=== PATIENT | female | born 1940 | race Caucasian/White ===

== ENCOUNTER 2016-10-09 22:29 | Inpatient (IN) | payer OTHER, BC ==
[~2016-10-09] VITALS: Ht 152.4 cm; Wt 59.0 kg
[2016-10-09 23:37] LABS: UA SPECIFIC GRAVITY <=1.005 (1.005-1.035); microscopic required? YES; urine erythrocyte 3+ (NEGATIVE)
[2016-10-09 23:47] LABS: PLATELET COUNT 180 x10^3mcL (130-400)
[2016-10-09 23:49] LABS: BASOPHIL % 0 % (0-2); RED CELL DISTRIBUTION WIDTH 18.2 % (11.5-14.5)
[2016-10-09 23:54] LABS: CALCIUM 8.4 mg/dL (8.5-10.1); CARBON DIOXIDE 21.2 mmol/L (21-32); CHLORIDE SERUM 102 mmol/L (98-107); CREATININE SERUM 1.7 mg/dL (0.6-1.0); GLUCOSE SERUM 155 mg/dL (74-106); POTASSIUM SERUM 3.3 mmol/L (3.5-5.1); SODIUM SERUM 135 mmol/L (136-145)
[2016-10-10 00:04] LABS: ALKALINE PHOSPHATASE 138 U/L (46-116); ALT/SGPT 20 U/L (14-59); AST/SGOT 29 U/L (15-37); BILIRUBIN TOTAL 1.3 mg/dL (0.20-1.00); TOTAL PROTEIN, SERUM 7.7 g/dL (6.4-8.2)
[2016-10-10 00:06] LABS: CK-MB < 0.5 ng/mL (0-3.6); CREATINE KINASE 23 U/L (26-192)
[2016-10-10 00:09] LABS: ALBUMIN 2.4 g/dL (3.4-5.0)
[2016-10-10] MEDS ORDERED: SYNTHROID0.112 MG PO (01:48)
[2016-10-10] MEDS ORDERED: CARVEDILOL6.25 M1 PO (01:48)
[2016-10-10] MEDS ORDERED: D-20001 TAB PO (01:49)
[2016-10-10] MEDS ORDERED: ASPIR LOW81 MG PO (01:49)
[2016-10-10] MEDS ORDERED: MASON NATURAL100 MG PO (01:49)
[2016-10-10] MEDS ORDERED: NITROFURANTOIN100 MG PO (01:50)
[2016-10-10 02:08] LABS: UA SPECIFIC GRAVITY <=1.005 (1.005-1.035); microscopic required? YES; urine erythrocyte NEGATIVE (NEGATIVE)
[2016-10-10 02:43] LABS: CHOLESTEROL/HDL RATIO 3.8
[2016-10-10 02:44] VITALS: BP 91/43
[2016-10-10 02:45] LABS: FREE T4 1.14 ng/dL (0.76-1.46); FREE THYROXINE INDEX 2.9 ug/dL (1.4-4.5)
[2016-10-10 04:45] LABS: T3 TOTAL 0.56 ng/mL
[2016-10-10 06:09] LABS: BASOPHIL % 0.2 % (0-2); PLATELET COUNT 160 x10^3mcL (130-400)
[2016-10-10 06:35] VITALS: BP 85/40
[2016-10-10 06:37] LABS: RED CELL DISTRIBUTION WIDTH 17.8 % (11.5-14.5)
[2016-10-10 06:57] LABS: CALCIUM 7.8 mg/dL (8.5-10.1); CARBON DIOXIDE 18.3 mmol/L (21-32); CHLORIDE SERUM 104 mmol/L (98-107); CREATININE SERUM 1.8 mg/dL (0.6-1.0); GLUCOSE SERUM 266 mg/dL (74-106); MAGNESIUM 1.7 mg/dL (1.8-2.4); PHOSPHOROUS 3.2 mg/dL (2.5-4.9); POTASSIUM SERUM 4.3 mmol/L (3.5-5.1); SODIUM SERUM 136 mmol/L (136-145)
[2016-10-10 10:05] VITALS: BP 106/40
[2016-10-10 13:28] VITALS: BP 105/55
[2016-10-10 17:02] VITALS: BP 90/40
[2016-10-10 20:47] VITALS: BP 93/49
[2016-10-11] VITALS (9 sets, daily range): BP systolic 94–117; BP diastolic 43–59
[2016-10-11 06:11] LABS: BASOPHIL % 0.3 % (0-2); PLATELET COUNT 163 x10^3mcL (130-400)
[2016-10-11 06:42] LABS: CALCIUM 7.6 mg/dL (8.5-10.1); CARBON DIOXIDE 18.9 mmol/L (21-32); CHLORIDE SERUM 108 mmol/L (98-107); CREATININE SERUM 1.5 mg/dL (0.6-1.0); GLUCOSE SERUM 139 mg/dL (74-106); MAGNESIUM 1.7 mg/dL (1.8-2.4); PHOSPHOROUS 2.3 mg/dL (2.5-4.9); POTASSIUM SERUM 4.5 mmol/L (3.5-5.1); SODIUM SERUM 138 mmol/L (136-145)
[2016-10-11] MEDS ORDERED: LIPI10 PO (10:14)
[2016-10-11] MEDS ORDERED: FLO4 PO (10:14)
[2016-10-12 01:02] VITALS: BP 108/58
[2016-10-12 05:49] VITALS: BP 105/52
[2016-10-12 06:33] LABS: PLATELET COUNT 161 x10^3mcL (130-400)
[2016-10-12 06:41] LABS: CALCIUM 7.6 mg/dL (8.5-10.1); CARBON DIOXIDE 19.8 mmol/L (21-32); CHLORIDE SERUM 108 mmol/L (98-107); CREATININE SERUM 1.5 mg/dL (0.6-1.0); GLUCOSE SERUM 158 mg/dL (74-106); MAGNESIUM 1.8 mg/dL (1.8-2.4); PHOSPHOROUS 2.9 mg/dL (2.5-4.9); POTASSIUM SERUM 4.5 mmol/L (3.5-5.1); SODIUM SERUM 138 mmol/L (136-145)
[2016-10-12 08:04] LABS: BASOPHIL % 0 % (0-2); RED CELL DISTRIBUTION WIDTH 17.9 % (11.5-14.5)
[2016-10-12 08:05] LABS: rbc morphology (normal/abnorm) NORMAL (NORMAL)
[2016-10-12 10:30] VITALS: BP 105/48
[2016-10-12 13:29] VITALS: BP 100/52
[2016-10-12 17:41] VITALS: BP 104/51
[2016-10-12 20:40] VITALS: BP 99/51
[2016-10-13 06:01] VITALS: BP 125/54
[2016-10-13 07:14] LABS: BASOPHIL % 0.2 % (0-2); PLATELET COUNT 159 x10^3mcL (130-400)
[2016-10-13 07:37] LABS: CALCIUM 8.2 mg/dL (8.5-10.1); CHLORIDE SERUM 110 mmol/L (98-107); CREATININE SERUM 1.4 mg/dL (0.6-1.0); GLUCOSE SERUM 141 mg/dL (74-106); MAGNESIUM 1.9 mg/dL (1.8-2.4); PHOSPHOROUS 2.4 mg/dL (2.5-4.9); SODIUM SERUM 138 mmol/L (136-145)
[2016-10-13 08:32] LABS: RED CELL DISTRIBUTION WIDTH 18.1 % (11.5-14.5)
[2016-10-13 09:20] VITALS: BP 130/60
[2016-10-13 17:24] VITALS: BP 109/37
[2016-10-13 21:21] VITALS: BP 114/52
[2016-10-14 06:15] VITALS: BP 93/44
[2016-10-14 06:40] LABS: BASOPHIL % 0.2 % (0-2); PLATELET COUNT 157 x10^3mcL (130-400)
[2016-10-14 06:45] LABS: RED CELL DISTRIBUTION WIDTH 18.1 % (11.5-14.5)
[2016-10-14 06:55] LABS: CALCIUM 7.9 mg/dL (8.5-10.1); CARBON DIOXIDE 18.9 mmol/L (21-32); CHLORIDE SERUM 109 mmol/L (98-107); CREATININE SERUM 1.5 mg/dL (0.6-1.0); GLUCOSE SERUM 123 mg/dL (74-106); POTASSIUM SERUM 4.3 mmol/L (3.5-5.1); SODIUM SERUM 138 mmol/L (136-145)
[2016-10-14 09:14] LABS: rbc morphology (normal/abnorm) ABNORMAL (NORMAL)
[2016-10-14 10:04] VITALS: BP 110/65
[2016-10-14] MEDS ORDERED: LEVAQUIN750 MG PO (15:54)
[2016-10-14] MEDS ORDERED: FER300 PO (16:07)
[2016-10-14 16:49] VITALS: BP 110/65
== END 2016-10-14 18:12 | disposition home or self-care (01) | DRG 689 ==
LOC: ED 22:29 → MU 10-10 01:43 → DU 10-10 01:43 → MU 10-11 15:40
PROVIDERS: Emergency Medicine; Family Medicine; ADMIT Family Medicine
DX: N39.0 Urinary tract infection, site not specified (principal); N17.0 Acute kidney failure with tubular necrosis; E43 Unspecified severe protein-calorie malnutrition; I50.43 Acute on chronic combined systolic (congestive) and diastolic (congestive) heart failure; E87.1 Hypo-osmolality and hyponatremia; R18.8 Other ascites; D68.69 Other thrombophilia; I11.0 Hypertensive heart disease with heart failure; E11.65 Type 2 diabetes mellitus with hyperglycemia; E11.51 Type 2 diabetes mellitus with diabetic peripheral angiopathy without gangrene; E87.6 Hypokalemia; K75.81 Nonalcoholic steatohepatitis (NASH); N13.39 Other hydronephrosis; N20.0 Calculus of kidney; D64.9 Anemia, unspecified; E80.6 Other disorders of bilirubin metabolism; K42.9 Umbilical hernia without obstruction or gangrene; E03.9 Hypothyroidism, unspecified; Z79.4 Long term (current) use of insulin; Z68.25 Body mass index [BMI] 25.0-25.9, adult; Z95.1 Presence of aortocoronary bypass graft; I25.10 Atherosclerotic heart disease of native coronary artery without angina pectoris; B96.89 Other specified bacterial agents as the cause of diseases classified elsewhere
CPT/HCPCS: 82962; 83880; 84439; J1815; J1956; J3475; J7030; Q0092

== ENCOUNTER 2017-05-24 02:52 | Inpatient (IN) | payer OTHER, BC ==
[~2017-05-24] VITALS: Ht 152.4 cm; Wt 56.8 kg
[~2017-05-24 02:52] MED LIST: ASPIR LOW81 MG PO; CARVEDILOL6.25 M1 PO; D-20001 TAB PO; FER300 PO; FLO4 PO; LEVAQUIN750 MG PO; LIPI10 PO; MASON NATURAL100 MG PO; NITROFURANTOIN100 MG PO; SYNTHROID0.112 MG PO
[2017-05-24 04:45] LABS: BASOPHIL % 0.1 % (0-2)
[2017-05-24 04:48] LABS: PLATELET COUNT 93 x10^3mcL (130-400)
[2017-05-24 04:55] LABS: ALKALINE PHOSPHATASE 72 U/L (46-116); ALT/SGPT 16 U/L (14-59); AST/SGOT 13 U/L (15-37); CALCIUM 8.6 mg/dL (8.5-10.1); CARBON DIOXIDE 12.5 mmol/L (21-32); CHLORIDE SERUM 102 mmol/L (98-107); GLUCOSE SERUM 129 mg/dL (74-106); LIPASE 760 IU/L (73-393); POTASSIUM SERUM 3.8 mmol/L (3.5-5.1); SODIUM SERUM 130 mmol/L (136-145); TOTAL PROTEIN, SERUM 7.3 g/dL (6.4-8.2)
[2017-05-24 04:58] LABS: ALBUMIN 2.9 g/dL (3.4-5.0); CREATININE SERUM 5.1 mg/dL (0.6-1.0)
[2017-05-24] MEDS ORDERED: SYNTHROID0.112 MG PO (05:24)
[2017-05-24] MEDS ORDERED: SPIRONOLACTONE50 MG PO (05:24)
[2017-05-24] MEDS ORDERED: FUROSEMIDE20 MG PO (05:25)
[2017-05-24] MEDS ORDERED: CEPHALEXIN500 MG PO (05:25)
[2017-05-24] MEDS ORDERED: CARVEDILOL6.25 M1 PO (05:26)
[2017-05-24] MEDS ORDERED: FUROSEMIDE40 MG PO (05:26)
[2017-05-24] MEDS ORDERED: ASPIR LOW81 MG PO (05:27)
[2017-05-24] MEDS ORDERED: NOVOLIN N100 U/ML (05:27)
[2017-05-24 05:41] LABS: microscopic required? YES; urine erythrocyte TRACE (NEGATIVE)
[2017-05-24 06:41] LABS: T3 TOTAL 0.41 ng/mL
[2017-05-24 06:48] LABS: MAGNESIUM 2.3 mg/dL (1.8-2.4); PHOSPHOROUS 4.5 mg/dL (2.5-4.9)
[2017-05-24 06:56] LABS: FREE T4 1.15 ng/dL (0.76-1.46)
[2017-05-24 07:03] LABS: CHOLESTEROL/HDL RATIO 7.3
[2017-05-24 07:45] LABS: AMPHETAMINE QUAL UR NONE DETECTED (NEG <=1000)
[2017-05-24 13:01] VITALS: BP 70/39
[2017-05-24 18:48] VITALS: BP 87/45
[2017-05-24 19:50] VITALS: BP 93/48
[2017-05-24 21:32] VITALS: BP 91/39
[2017-05-25] VITALS (7 sets, daily range): BP systolic 95–132; BP diastolic 52–79
[2017-05-25 06:46] LABS: BASOPHIL % 0.4 % (0-2)
[2017-05-25 06:47] LABS: CALCIUM 8.4 mg/dL (8.5-10.1); CARBON DIOXIDE 10.8 mmol/L (21-32); CHLORIDE SERUM 108 mmol/L (98-107); GLUCOSE SERUM 128 mg/dL (74-106); PLATELET COUNT 77 x10^3mcL (130-400); POTASSIUM SERUM 3.6 mmol/L (3.5-5.1); RED CELL DISTRIBUTION WIDTH 18.2 % (11.5-14.5); SODIUM SERUM 135 mmol/L (136-145)
[2017-05-25 06:51] LABS: CREATININE SERUM 5.1 mg/dL (0.6-1.0)
[2017-05-26 05:19] VITALS: BP 117/62
[2017-05-26 08:24] LABS: BASOPHIL % 0.2 % (0-2); PLATELET COUNT 89 x10^3mcL (130-400); RED CELL DISTRIBUTION WIDTH 18.1 % (11.5-14.5)
[2017-05-26 08:53] LABS: CALCIUM 8.4 mg/dL (8.5-10.1); CARBON DIOXIDE 10.6 mmol/L (21-32); CHLORIDE SERUM 110 mmol/L (98-107); GLUCOSE SERUM 106 mg/dL (74-106); MAGNESIUM 2.3 mg/dL (1.8-2.4); PHOSPHOROUS 5.5 mg/dL (2.5-4.9); POTASSIUM SERUM 3.7 mmol/L (3.5-5.1); SODIUM SERUM 137 mmol/L (136-145)
[2017-05-26 09:07] LABS: CREATININE SERUM 5.3 mg/dL (0.6-1.0)
== END 2017-05-28 04:14 | disposition expired | DRG 441 ==
LOC: ED 02:52 → DU 05:09
PROVIDERS: Emergency Medicine; ADMIT Family Medicine Sports Medicine
DX: K72.90 Hepatic failure, unspecified without coma (principal); I50.43 Acute on chronic combined systolic (congestive) and diastolic (congestive) heart failure; N17.0 Acute kidney failure with tubular necrosis; K76.7 Hepatorenal syndrome; E44.0 Moderate protein-calorie malnutrition; E87.1 Hypo-osmolality and hyponatremia; R18.8 Other ascites; I13.0 Hypertensive heart and chronic kidney disease with heart failure and stage 1 through stage 4 chronic kidney disease, or unspecified chronic kidney disease; K74.60 Unspecified cirrhosis of liver; N18.3 Chronic kidney disease, stage 3 (moderate); E11.22 Type 2 diabetes mellitus with diabetic chronic kidney disease; E11.21 Type 2 diabetes mellitus with diabetic nephropathy; I11.0 Hypertensive heart disease with heart failure; D64.9 Anemia, unspecified; E86.0 Dehydration; E11.51 Type 2 diabetes mellitus with diabetic peripheral angiopathy without gangrene; E11.65 Type 2 diabetes mellitus with hyperglycemia; I25.10 Atherosclerotic heart disease of native coronary artery without angina pectoris; E03.9 Hypothyroidism, unspecified; K42.9 Umbilical hernia without obstruction or gangrene; Z66 Do not resuscitate; I25.2 Old myocardial infarction; Z95.1 Presence of aortocoronary bypass graft; Z51.5 Encounter for palliative care
CPT/HCPCS: 82962; 83880; 84439; J1630; J2270; J7030; J7042; Q0092